=== PATIENT | male | born 1960 ===

== ENCOUNTER 2018-04-03 11:50 | Inpatient (IN) | payer MEDICAID ==
[2018-04-03 14:15] VITALS: BMI 27.4
--- NOTE | 2018-04-03 14:24 | C.PDOC ---
History Of Present Illness 57 year old male, whose past medical history includes asthma, presents to the ED requesting detox from crack cocaine. Patient states he has already been pre- screened. Patient states his last use was yesterday. He is c/o generalized body aches, fever, cough, and one episode of post-tussive emesis. Patient denies shortness of breath, headache, chest pain, diarrhea or recent travel. History Per: Patient History/Exam Limitations: no limitations Onset/Duration Of Symptoms: Hrs Current Symptoms Are (Timing): Still Present Recent travel outside of the [place]: No Additional History Per: Patient Past Medical History Reviewed: Historical Data, Nursing Documentation, Vital Signs - Medical History PMH: No Chronic Diseases Surgical History: No Surg Hx Family History: States: Unknown Family Hx Review Of Systems Constitutional: Positive for: Fever Cardiovascular: Negative for: Chest Pain Respiratory: Positive for: Cough. Negative for: Shortness of Breath Gastrointestinal: Positive for: Vomiting. Negative for: Diarrhea Musculoskeletal: Positive for: Other (generalized body aches ) Neurological: Negative for: Headache Psych: Positive for: Other (detox from crack cocaine ) Physical Exam - Physical Exam Appears: Non-toxic, No Acute Distress Skin: Normal Color, Warm, Dry Head: Atraumatic, Normacephalic Eye(s): bilateral: Normal Inspection Oral Mucosa: Moist Neck: Supple Chest: Symmetrical, No Deformity, No Tenderness Cardiovascular: Rhythm Regular, Other (tachycardic, normal S1/S2) Respiratory: Rales, Rhonchi (diffuse ), No Wheezing Extremity: Normal ROM, Capillary Refill (less than 2 seconds ) Neurological/Psych: Oriented x3, Normal Speech, Normal Cognition ED Course And Treatment - Laboratory Results Result Diagrams: 04/03/18 15:48 04/03/18 15:48 Medical Decision Making Medical Decision Making: Progress: Patient noted to have temperature of 101.7 and was given Tylenol in triage. Will order flu swab and CXR. Patient will be evaluated by social worker health services. Patient is positive for Flu A. CXR results are unremarkable. Patient informed that there are no detox beds available at this time. Patient reports suicidal ideation. Case discussed with production welding supervisor. States okay for patient to be admitted to floor. Patient will have to keep mask on, because of Flu diagnosis. Disposition - Disposition Disposition: HOSPITALIZED Disposition Time: 17:53 Condition: STABLE - POA Present On Arrival: None - Clinical Impression Clinical Impression: Cocaine abuse, Influenza A, Suicidal ideation
--- NOTE | 2018-04-03 14:50 | RAD ---
Date of service: 04/03/2018 HISTORY: Cough and fever COMPARISON: No prior. TECHNIQUE: Chest PA and lateral FINDINGS: LUNGS: No active pulmonary disease. PLEURA: No significant pleural effusion identified. No pneumothorax apparent. CARDIOVASCULAR: No aortic atherosclerotic calcification present. Normal cardiac size. No pulmonary vascular congestion. OSSEOUS STRUCTURES: No significant abnormalities. VISUALIZED UPPER ABDOMEN: Normal. OTHER FINDINGS: None. IMPRESSION: No active disease.
[2018-04-03 15:51] LABS: BASO % 0.5 % (0.0-2.0); EOS % 0.4 % (0.0-4.0); HEMOGLOBIN 13.1 g/dL (12.0-18.0); LYMPH # 0.7 K/uL (1.0-4.3); LYMPH % 13.7 % (20.0-40.0); MEAN CELL VOLUME 93.3 fL (80.0-94.0); MEAN CORPUSCULAR HEMOGLOBIN 31.7 pg (27.0-31.0); MEAN CORPUSCULAR HGB CONC 33.9 g/dL (33.0-37.0); MEAN PLATELET VOLUME 7.5 fL (7.2-11.7); MONO # 0.6 K/uL (0.0-0.8); MONO % 10.5 % (0.0-10.0); NEUT % 74.9 % (50.0-75.0); RBC 4.14 Mil/uL (4.40-5.90); RED CELL DISTRIBUTION WIDTH 13.3 % (11.5-14.5); WHITE BLOOD COUNT 5.4 K/uL (4.8-10.8)
[2018-04-03 15:58] LABS: SQUAMOUS EPITHIAL < 1 /hpf (0-5); URINE BACTERIA OCC (<OCC); URINE BILIRUBIN NEGATIVE (NEGATIVE); URINE BLOOD NEGATIVE (NEGATIVE); URINE CLARITY Clear (Clear); URINE COLOR Yellow (YELLOW); URINE GLUCOSE (UA) NORMAL (Normal); URINE LEUKOCYTE ESTERASE NEG Leu/uL (Negative); URINE PROTEIN 1+ mg/dL (NEGATIVE); URINE UROBILINOGEN NORMAL mg/dL (0.2-1.0)
[2018-04-03 16:35] LABS: ALB/GLOB RATIO 1.5 (1.0-2.1); ALBUMIN 4.1 g/dL (3.5-5.0); ALT/SGPT 29 U/L (21-72); AST/SGOT 19 U/L (17-59); BLOOD UREA NITROGEN 14 mg/dL (9-20); CALCIUM 8.4 mg/dl (8.6-10.4); GFR NON-AFRICAN AMERICAN 57
[2018-04-03 16:45] LABS: BARBITURATES, UR NEGATIVE (NEGATIVE); BENZODIAZEPINES, UR NEGATIVE (NEGATIVE); OPIATES, UR NEGATIVE (NEGATIVE); PHENCYCLIDINE, UR NEGATIVE (NEGATIVE)
[2018-04-03] MEDS ORDERED: Albuterol HFA 90 mcg/actuation (8 g) INH PRN (22:30)
--- NOTE | 2018-04-03 23:12 | PCM.BM ---
<Alek Lott - Last Filed: 04/03/18 23:10> Treatment Plan Problems - Problems identified on initial assessmt Suicidal Behavior Date Initiated: 04/03/18 Time Initiated: 20:00 Assessment reference: NA Status: Active Treatment assets and liabiliti Patient Assests: ADL independent, negotiates basic needs Patient Liabilities: substance abuse (Cocaine) - Milieu Protocol Maintain good personal hygiene: daily Encourage regular showers, daily Remind patient to perform daily oral care, every shift Assist patient to perform ADL's Conduct patient checks and document Observation sheet: Q15 minutes Maintain personal safety: every shift Educate patient to report safety concerns to staff, every shift Monitor environment for contraband/sharps Medication safety: Monitor for expected outcome, potential side effects: every shift, Assess barriers to learning: every shift, Assess readiness for medication education: every shift <Desiree Coughlin - Last Filed: 04/05/18 11:45> Family Contact Family involvement: Famliy/SO not involved - Goals for Treatment Patient goals for treatment: No comment Discharge/Continuing Care - Education Needs Education Needs: Patient Medication, Patient Coping Skills, Patient Placement options, Patient Community resources - Discharge Discharge Criteria: Tolerates medication w/o severe side effects, No longer exhibiting s/s of withdrawal, Reduction of target symptoms Discharge to:: Assisted - Treatment Team Participation Discussed with Family/SO: No Was Patient/Family/SO present at Treatment Team Meeting: Yes
--- NOTE | 2018-04-04 10:42 | PCM.PSYCH ---
Initial Psychiatric Evaluation - Initial Psychiatric Evaluation Type of Admission: Voluntary Legal Status: Capacity Chief Complaint (in patient's own words): I was feeling depressed and suicidal.' History of Present Illness and Precipitating Events: This is a 57 years old male, who lives with his girlfriend, came to the [facility] for detox, but he reported depressed mood and suicidal ideation. Patient reports that he is smoking $100 dollars of crack cocaine a day and denies any drinking or any substance abuse. He reports that he has been admitted to a psychiatric unit in [facility] due to suicide attempt via dr myles artis 6 years ago. Patient failed to follow up or take any prescribed medications. Patient reports that he has been abusing increasing amount of cocaine. Patient says he has been feeling sad for years, with no identifiable reason. He reports depressed mood, feelings of hopelessness and helplessness. He also reports poor sleep and poor appetite and anhedonia. He reports at times irrita bility and agitation. He denies any auditory hallucinations or any paranoia. PMH: History of flu Current Medications: Active Medications Generic Name Dose Route Start Last Admin Trade Name Freq PRN Reason Stop Dose Admin Acetaminophen 650 mg 04/03/18 23:21 04/04/18 06:45 Tylenol 325mg Tab PO 650 mg Q6H PRN Administration Pain, moderate (4-7) Albuterol 1 puff 04/03/18 22:30 Ventolin Hfa 90 Mcg/Actuation (8 G) INH RQ6 PRN Shortness of Breath Oseltamivir Phosphate 75 mg 04/04/18 10:00 04/04/18 09:59 Tamiflu Cap PO 04/08/18 23:45 75 mg BID TERI Administration Protocol Pneumococcal Polyvalent Vaccine 0.5 ml 04/06/18 10:00 Pneumovax 23 Vaccine IM 04/06/18 10:01 .ONCE ONE Past Psychiatric History - Past Psychiatric History Previous Treatment History: Inpatient Pertinent Medical Hx (Current Medical&Sleep Prob, Allergies): Allergies Allergy/AdvReac Type Severity Reaction Status Date / Time No Known Allergies Allergy Verified 04/03/18 14:14 Review of Systems - Review of Systems All systems: reviewed and no additional remarkable complaints except - Constitutional Constitutional: UN - EENT Eyes: UNREMARKABLE Ears: UNREMARKABLE Nose/Mouth/Throat: UNREMARKABLE - Cardiovascular Cardiovascular: UNREMARKABLE - Respiratory Respiratory: UNREMARKABLE - Gastrointestinal Gastrointestinal: UNREMARKABLE - Genitourinary Genitourinary: UNREMARKABLE - Reproductive: Male Reproductive:Male: UNREMARKABLE - Musculoskeletal Musculoskeletal: UNREMARKABLE - Integumentary Integumentary: UNREMARKABLE - Neurological Neurological: UNREMARKABLE - Psychiatric Psychiatric: Anxiety, Depression, Suicidal Ideation - Endocrine Endocrine: UNREMARKABLE - Hematologic/Lymphatic Hematologic: UNREMARKABLE Mental Status Examination - Personal Presentation Personal Presentation: Looks stated age - Affect Affect: Constricted, Depressed - Motor Activity Motor Activity: Calm - Reliability in Providing Information Reliability in Providing Information: Good - Speech Speech: Organized - Mood Mood: Depressed, Anxious - Formal Thought Process Formal Thought Process: No Impairment - Obsessions/Compulsions Obsessions: No Compulsions: No - Cognitive Functions Orientation: Person, Place, Situation, Time Sensorium: Alert Attention/Concentration: Attentive Abstract Thinking: [place] Estimate of Intelligence: Below average Judgement: Imparied, as evidence by: Poor judgement, Imparied, as evidence by: Lack of insight into illness - Risk Risk: Diminished functioning DSM 5 DX - DSM 5 DSM 5 Diagnosis: Major depressive disorder recurrent severe without psychotic features Cocaine use disorder severe - Recommended/Plan of Treatment Treatment Recommendations and Plan of Treatment: Major depressive disorder recurrent severe without psychotic features Cocaine use disorder severe CBT Psychoeducation Supportive therapy and group therapy Hydroxyzine 25 mg p.o. every 6 hours as needed Trazodone 50 mg p.o. nightly Ativan 1 mg p.o. every 6 hours as needed Neurontin 100 mg p.o. 3 times daily Remeron 15 mg p.o. nightly
--- NOTE | 2018-04-05 10:01 | PCM.BM ---
Treatment Plan Problems - Problems identified on initial assessmt Suicidal Behavior Date Initiated: 04/03/18 Time Initiated: 20:00 Assessment reference: NA Status: Active Treatment assets and liabiliti Patient Assests: ADL independent, negotiates basic needs Patient Liabilities: substance abuse (Cocaine) - Milieu Protocol Maintain good personal hygiene: daily Encourage regular showers, daily Remind patient to perform daily oral care, every shift Assist patient to perform ADL's Conduct patient checks and document Observation sheet: Q15 minutes Maintain personal safety: every shift Educate patient to report safety concerns to staff, every shift Monitor environment for contraband/sharps Medication safety: Monitor for expected outcome, potential side effects: every shift, Assess barriers to learning: every shift, Assess readiness for medication education: every shift Milieu Narrative: Major depressive disorder recurrent severe without psychotic features Cocaine use disorder severe CBT Psychoeducation Supportive therapy and group therapy Hydroxyzine 25 mg p.o. every 6 hours as needed Trazodone 50 mg p.o. nightly Ativan 1 mg p.o. every 6 hours as needed Neurontin 100 mg p.o. 3 times daily Remeron 15 mg p.o. nightly Discharge/Continuing Care - Treatment Team Participation Patient/Family/SO Statement: Major depressive disorder recurrent severe without psychotic features Cocaine use disorder severe CBT Psychoeducation Supportive therapy and group therapy Hydroxyzine 25 mg p.o. every 6 hours as needed Trazodone 50 mg p.o. nightly Ativan 1 mg p.o. every 6 hours as needed Neurontin 100 mg p.o. 3 times daily Remeron 15 mg p.o. nightly
--- NOTE | 2018-04-06 00:43 | PCM.PYCHPN ---
Psychiatric Progress Note - Psychiatric Progress Note Patient seen today, length of contact: 15 min Patient Chief Complaint: I m feeling depressed.' Problems Identified/Issues Discussed: Patient was seen and evaluated, chart reviewed and discussed the staff. Patient still reports depressed mood, feelings of hopelessness and helplessness. He remained isolated and confined to his room. As per staff he is not attending any groups or meetings. However he denies any auditory hallucinations and paranoia. He is taking medication but denies any side effects He needs to stay longer for the further stabilization of the symptoms Supportive therapy was given Medication Change: Yes Medical Record Reviewed: Yes Mental Status Examination - Cognitive Function Orientation: Person, Place, Situation, Time Memory: Intact Attention: WNL Concentration: Poor Association: WNL Fund of Knowledge: Poor - Mood Mood: Depressed, Anxious - Affect Affect: Constricted, Depressed - Speech Speech: Soft - Formal Thought Process Formal Thought Process: No Impairment - Suicidal Ideation Suicidal Ideation: No - Homicidal Ideation Homicidal Ideation: No Goal/Treatment Plan - Goal/Treatment Plan Need for Continued Stay: Severe depression anxiety, Severe functional impairment Progress Toward Problem(s) and Goals/Treatment Plan: Major depressive disorder recurrent severe without psychotic features Cocaine use disorder severe CBT Psychoeducation Supportive therapy and group therapy Hydroxyzine 25 mg p.o. every 6 hours as needed Trazodone 50 mg p.o. nightly Ativan 1 mg p.o. every 6 hours as needed Neurontin 100 mg p.o. 3 times daily Remeron 15 mg p.o. nightly - Smoking Cessation Smoking Cessation Initiated: No
[2018-04-06] MEDS ORDERED: Pneumococcal 23-Valent Vaccine IM ONE (10:00)
[2018-04-09 07:05] VITALS: BP 126/81; PULSE 77; RESP 18; TEMP 97.5; O2SAT 97
--- NOTE | 2018-04-09 10:57 | PCM.PYCHDC ---
Mental Status Examination - Mental Status Examination Orientation: Person, Place, Situation, Time Memory: Intact Mood: Neutral Affect: Constricted Speech: Soft Attention: WNL Concentration: WNL Association: WNL Fund of Knowledge: WNL Formal Thought Process: No Impairment Description of patient's judgement and insight: good, fair Psychotic Thoughts and Behaviors: denies any AVH Suicidal Ideation: No Current Homicidal Ideation?: No Discharge Summary - Discharge Note Reason for Hospitalization: This is a 57 years old male, who lives with his girlfriend, came to the [facility] for detox, but he reported depressed mood and suicidal ideation. Patient reports that he is smoking $100 dollars of crack cocaine a day and denies any drinking or any substance abuse. He reports that he has been admitted to a psychiatric unit in [facility] due to suicide attempt via drug overdose 6 years ago. Patient failed to follow up or take any prescribed medications. Patient reports that he has been abusing increasing amount of cocaine. Patient says he has been feeling sad for years, with no identifiable reason. He reports depressed mood, feelings of hopelessness and helplessness. He also reports poor sleep and poor appetite and anhedonia. He reports at times irritability and agitation. He denies any auditory hallucinations or any paranoia. Consultations:: List each consultation separately and include: 1. Reason for request. 2. Findings. 3. Follow-up Summary of Hospital Course include:: 1. Description of specific treatment plan utilized for patients during their course of treatmen. 2. Summarize the time- course for resolution of acute symptoms and/or regressed behaviors. 3. Describe issues identified and worked on during hospitalization. 4. Describe medication utilized. 5. Describe medical problems identified and treated. 6. Reassessment of suicide risk Summary of Hospital Course: This is a 57 years old male, who lives with his girlfriend, came to the [facility] for detox, but he reported depressed mood and suicidal ideation. Patient reports that he is smoking $100 dollars of crack cocaine a day and denies any drinking or any substance abuse. He reports that he has been admitt ed to a psychiatric unit in [facility] due to suicide attempt via drug overdose 6 years ago. Patient failed to follow up or take any prescribed medications. Patient reports that he has been abusing increasing amount of cocaine. Patient says he has been feeling sad for years, with no identifiable reason. He reports depressed mood, feelings of hopelessness and helplessness. He also reports poor sleep and poor appetite and anhedonia. He reports at times irritability and agitation. He denies any auditory hallucinations or any paranoia. PMH: History of flu - Final Diagnosis (DSM 5) Condition upon Discharge: STABLE Disposition: HOME/ ROUTINE Follow-up Treatment Plan: Major depressive disorder recurrent severe without psychotic features Cocaine use disorder severe CBT Psychoeducation Supportive therapy and group therapy Hydroxyzine 25 mg p.o. every 6 hours as needed Trazodone 50 mg p.o. nightly Ativan 1 mg p.o. every 6 hours as needed Neurontin 100 mg p.o. 3 times daily Remeron 15 mg p.o. nightly Prescriptions/Medication Reconciliation: Gabapentin [Neurontin] 100 mg PO BID #60 cap Mirtazapine [Remeron] 30 mg PO HS #30 tab PARoxetine [Paxil] 10 mg PO DAILY #30 tab
== END 2018-04-09 12:00 | disposition home or self-care (01) | DRG 430 ==
LOC: C.ER 11:50 → C.9E 17:54 → C.5E 19:06
PROVIDERS: ADMIT Psychiatry & Neurology Psychiatry; ATTEND Psychiatry & Neurology Psychiatry
PROC: GZ3ZZZZ Medication Management (ICD-10-PCS; principal; 2018-04-03)
PROC: GZHZZZZ Group Psychotherapy (ICD-10-PCS; 2018-04-03)
PROC: GZ56ZZZ Individual Psychotherapy, Supportive (ICD-10-PCS; 2018-04-03)
DX: F33.2 Major depressive disorder, recurrent severe without psychotic features (principal); F14.20 Cocaine dependence, uncomplicated; F17.200 Nicotine dependence, unspecified, uncomplicated; J10.1 Influenza due to other identified influenza virus with other respiratory manifestations; J45.909 Unspecified asthma, uncomplicated; R45.851 Suicidal ideations; Z91.5 Personal history of self-harm